=== PATIENT | male | born 1985 | race Caucasian/White ===

== ENCOUNTER 2018-11-15 16:14 | Inpatient (IN) | payer BC, MEDICAID, SELFPAY ==
[2018-11-15 16:25] VITALS: BMI 23.1
[2018-11-15 16:46] VITALS: BP 158/109; PULSE 108; RESP 18; TEMP 37.1; O2SAT 96
[2018-11-15] MEDS: chlordiazePOXIDE 25 MG Capsule PO ×2 (17:27→23:26)
[2018-11-15] MEDS: Dicyclomine 10 MG Capsule 20 MG PO (17:27)
--- NOTE | 2018-11-15 17:49 | HP.PCM_ITS ---
Problem List (1) Alcohol withdrawal Status: Acute Qualifiers: Complication of substance-induced condition: uncomplicated Qualified Code(s): F10.230 - Alcohol dependence with withdrawal, uncomplicated History of Present Illness Date of Admission: 11/15/18 Chief Complaint: Alcohol withdrawal The patient is a 33 year old M who was seen at [facility] with complaints of alcohol withdrawal, he was evaluated in the [facility] office and requested admission for alcohol withdrawal and detox. Patient's last drink was this morning-he states he had 2 ounces of vodka this morning. Patient admits to drinking 8 ounces of vodka on a daily basis. Patient denies other illicit drug usage. Past medical history includes hypertension. Patient has been through alcohol detox approximately 2 years ago, he states that he relapsed in September 2018 and is been drinking ever since. Today patient has complaints of tremors, anxiety, agitation, headache, and light sensitivity. Evaluation in the [facility] office area reveals the patient to be alert and appropriate, he does appear to be anxious and tremulous, on examination he is tachycardic. Patient appears restless. Patient will be directly admitted to [place] [id number] under the medical stabilization program at [facility]. Past Medical History Allergies Penicillins Adverse Reaction (Verified 11/15/18 16:36) Rash Home Medications: Ambulatory Orders Medication Instructions Recorded Losartan Potassium 100 mg PO DAILY 11/15/18 Surgical History: no surgical history Psychiatric History: No pertinent psych hx Lives: With Family Smoking Status: Never smoker Tobacco Use: Non-smoker Alcohol: Heavy Drugs: None - *Family History Maternal History Items: No pertinent history Paternal History Items: No pertinent history Review of Systems Constitutional: Reports: Malaise, Weakness. Denies: Anorexia, Chills, Fever, Night Sweats, Weight Change Eyes: Denies: Cataracts, Conjunctivae Inflammation, Double vision, Drainage HEENT: Denies: Difficulty Swallowing, Dysphasia, Ear Pain, Eye Pain, Hearing Changes, Nasal bleeding, Nasal Congestion, Post Nasal Drip Cardiovascular: Denies: Chest Pain, Claudication, Chest Pressure, Chest Tightness, Edema, Heaviness, Palpitations Respiratory: Denies: Cough, Hemoptysis, Pleuritic Pain, Shortness of Breath, Shortness of breath at rest, Shortness of breath upon exertion Gastrointestinal: Denies: Abdominal Pain, Constipation, Diarrhea, Hematemesis, Hematochezia, Nausea, Melena, Vomiting Genitourinary: Denies: Dysuria, Frequency, Hematuria, Hesitancy, Incontinence, Nocturia, Urgency Musculoskeletal: Denies: Back Pain, Foot Pain, Hand Pain, Joint Pain, Joint stiffness, Joint swelling, Joint Tenderness, Leg Pain Skin: Denies: Dryness, Pruritis, Rash Neurological: Reports: Headaches, Tremor. Denies: Balance problems, Blurred vision, Double vision, Slurred speech, Confusion, Difficulty swallowing, Focal weakness, Numbness, Tingling Psychiatric: Reports: Anxiety. Denies: Depression, Homicidal Ideations, Suicidal Ideations Endocrine: Denies: Change in Body Habitus, Heat/ Cold Intolerance, Polydipsia, Polyuria Hematologic/ Lymphatic: Denies: Adenopathy, Anemia, Easy Bruising, Easy Bleeding, Petechiae, Purpura VTE Information - Inpt Only VTE Present on Admission: No VTE Mechan Device Prophylaxis: None VTE Pharm Prophylaxis ordered?: No Reason prophylaxis not ordered:: Treatment Not Indicated Patient Problems: Active and Suspected Problems Alcohol withdrawal delirium, acute, hypoactive (Acute) Alcohol withdrawal (Acute) - Physical Exam General: Alert, Oriented x3, Cooperative, - - Patient appears moderately anxious, he does have a slight tremor, patient appears restless HEENT: Atraumatic, PERRLA, EOMI, Normocephalic Oral: Dry Mucosa Neck: Supple, No JVD, Negative Carotid Bruits, No Nuchal Rigidity, Trachea Midl ine, Thyroid Normal Size and Texture Lungs: Clear to auscultation, Normal air movement, No rhonchi, No wheeze, No rales Cardiovascular: Regular rate, Regular Rhythm, Normal S1, Normal S2, No murmurs, No Ectopic Activity Abdomen: Bowel Sounds Present, Soft, Non Tender, Non-Distended, No hernias noted Extremities: No clubbing, No cyanosis, No edema, Capillary Refill Less than 3 Seconds Skin: No rashes, No breakdown Musculoskeletal: No Tenderness to Palpation of Joints or Extremities Neurological: Cranial nerves II-XII grossly intact, Neuro grossly intact, Sensory exam intact to light touch and pain, Coordination normal Psych/Mental Status: Anxious, Restless, Alert and oriented to time, place, person, mood and affect Vital Signs Temp Pulse Resp BP Pulse Ox 98.7 F 108 H 18 158/109 H 96 11/15/18 16:46 11/15/18 16:46 11/15/18 16:46 11/15/18 16:46 11/15/18 16:46 Oxygen Delivery Method Room Air Weight: 79.379 kg Body Mass Index (BMI) 23.1 Assessment/Plan All Active Problems Alcohol withdrawal delirium, acute, hypoactive (Acute) Alcohol withdrawal (Acute) #1 acute alcohol withdrawal-uncomplicated at this time-patient will be admitted to [facility] 2, medical stabilization order sets were used to enter orders for the patient, patient requested a fluid bolus and I have written for 2000 cc of normal saline to be administered. Patient will be placed on a tapering dose of Librium and will be monitored and given IV Ativan as needed. #2 hypertension-I will place the patient on Diovan for hypertension, he takes losartan at home, I believe that the Diovan is a better medication in the same class #3 chronic alcoholism #4 possible depression-patient will need to follow-up as an outpatient regarding treatment for depression if needed. Patient does not espouse any suicidal thoughts. Code Visit Inpatient E&M: 24224 Init Hosp L3
[2018-11-15] MEDS: 0.9% Normal Saline 1,000 ML 999 ML IV ×2 (18:57→19:35)
[2018-11-15] MEDS: Losartan Potassium 50 MG Tablet PO (18:58)
[2018-11-15 19:03] VITALS: BP 145/90; PULSE 95; RESP 16; TEMP 36.9; O2SAT 100
[2018-11-15 21:02] VITALS: BP 112/62; PULSE 116; RESP 16; TEMP 37.1
[2018-11-15] MEDS: 0.9% NaCl Peripheral Flush Adult/Peds IV (21:06)
[2018-11-15] MEDS: Ondansetron 4 MG/2 ML Vial IV (21:06)
[2018-11-15 21:32] LABS: Anion Gap 13 (5-15); BUN 5 mg/dL (7-18); BUN/Creat Ratio 6.8 RATIO (10-20); Calcium,Total 7.5 mg/dL (8.5-10.1); Chloride 109 mmol/L (98-107); Creatinine, Serum 0.73 mg/dL (0.70-1.30); EST Glomerular Filtration Rate 133 mL/min (>60); Est Glom Filt Rate - Afr Amer 160 mL/min (>60); Estimated Creatinine Clearance 164.62 ml/min; Glucose 126 mg/dL (74-106); Potassium 3.3 mmol/L (3.5-5.1); Sodium Level 145 mmol/L (136-145)
[2018-11-15 23:24] VITALS: BP 106/66; PULSE 105; RESP 16; TEMP 36.7
[2018-11-16 03:30] VITALS: BP 121/79; PULSE 85; RESP 16; TEMP 36.6
[2018-11-16 05:34] VITALS: BP 140/97; PULSE 93; RESP 16; TEMP 37.1
[2018-11-16] MEDS: 0.9% NaCl Peripheral Flush Adult/Peds IV (05:38)
[2018-11-16] MEDS: Ondansetron 4 MG/2 ML Vial IV (05:38)
[2018-11-16] MEDS: chlordiazePOXIDE 25 MG Capsule PO ×3 (05:38→18:37)
[2018-11-16] MEDS: LORazepam 1 MG Tablet 2 MG PO ×2 (05:45→10:04)
--- NOTE | 2018-11-16 08:07 | PCM.PROGNOTE ---
Patient Problems: Active and Suspected Problems Alcohol withdrawal delirium, acute, hypoactive (Acute) Alcohol withdrawal (Acute) Subjective: Mr. Sandra is a 33 YO M who presented to the [facility] office at [facility] on 11/15/2018 requesting inpatient admission for medical stabilization for withdrawal from alcohol. He stated he drank 8 ounces of vodka on a daily basis. He denied any illicit drug use. Past medical history was significant only for alcohol dependence and hypertension. He had previously been to alcohol detox in 2016 and was sober until he relapsed in September 2018. Complained of tremors, anxiety, headache and light sensitivity. He was admitted to the [facility] program and the protocol for medical stabilization for ETOH withdrawal was initiated. He was placed on an Ativan taper. Lab at admission showed a K of 3.3. GLucose was mildly increased at 126. All events of the past 24 hours have been reviewed. He has been afebrile. He was initially tachycardic but the heart rate this a.m. is 93. Blood pressure today is mildly increased at 140/97. He is c/o anxiety and states that the Ativan is not enough to control his anxiety. 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 He tells me that the holidays is a hard time for him and he gets depressed. He is agreeable to an antidepressant. Objective: PHYSICAL EXAM: GENERAL: alert, oriented X 3, Cooperative, he is shaky and lying in a dark room, he has tremors and looks anxious ORAL: moist mucosa, no mucosal lesions NECK: No JVD, supple, trachea midline LUNGS: CTA, symmetric chest expansion HEART: RRR, Normal S1 and S2, no rub, no gallop....increased resting HR ABDOMEN: soft, NT, ND, BS present, no guarding with palpation EXTREMITIES: no edema, no cyanosis, no calf tenderness SKIN: No rashes, no breakdown NEUROLOGIC: no focal neurologic deficits, tremors PSYCH: appropriate, normal affect, pleasant - Physical Exam Vital Signs Temp Pulse Resp BP Pulse Ox 98.8 F 93 16 140/97 H 100 11/16/18 05:34 11/16/18 05:34 11/16/18 05:34 11/16/18 05:34 11/15/18 19:03 Oxygen Delivery Method Room Air Weight: 175 lb Body Mass Index (BMI) 23.1 Intake and Output for Last 24 Hours 11/14/18 11/15/18 11/16/18 23:59 23:59 23:59 Intake Total 3305 / 3305 400 / 400 Balance 3305 / 3305 400 / 400 Laboratory Tests Past 24 Hrs 11/15/18 21:12 Sodium 145 Potassium 3.3 L Chloride 109 H Carbon Dioxide 23.0 Anion Gap 13 BUN 5 L Creatinine 0.73 Estim Creat Clear Calc 164.62 Est GFR (MDRD) Af Amer 160 Est GFR (MDRD) Non-Af 133 BUN/Creatinine Ratio 6.8 L Glucose 126 H Calcium 7.5 L Medical Necessity - Tobacco Use Smoking Status: Never smoker Tobacco Use: Non-smoker Assessment/Plan All Active Problems Alcohol withdrawal delirium, acute, hypoactive (Acute) Alcohol withdrawal (Acute) Impression 1. acute ETOH withdrawal 2. anxiety/depression - the anxiety is worse today but he has chronic anxiety....will DC the Wellbutrin and use an SSRI to control both anxiety and depression 3. Hypokalemia - supplement ordered Try Vistaril for the increased anxiety Continue the [facility] program for ETOH withdrawal Code Visit Inpatient E&M: 14736 Subs Hosp L2
--- NOTE | 2018-11-16 08:12 | PN_ITS ---
Patient Problems: Active and Suspected Problems Alcohol withdrawal delirium, acute, hypoactive (Acute) Alcohol withdrawal (Acute) Subjective: Mr. Sandra is a 33 YO M who presented to the [facility] office at [facility] on 11/15/2018 requesting inpatient admission for medical stabilization for withdrawal from alcohol. He stated he drank 8 ounces of vodka on a daily basis. He denied any illicit drug use. Past medical history was significant only for alcohol dependence and hypertension. He had previously been to alcohol detox in 2016 and was sober until he relapsed in September 2018. Complained of tremors, anxiety, headache and light sensitivity. He was admitted to the [facility] program and the protocol for medical stabilization for ETOH withdrawal was initiated. He was placed on an Ativan taper. Lab at admission showed a K of 3.3. GLucose was mildly increased at 126. All events of the past 24 hours have been reviewed. He has been afebrile. He was initially tachycardic but the heart rate this a.m. is 93. Blood pressure today is mildly increased at 140/97. He is c/o anxiety and states that the Ativan is not enough to control his anxiety. 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 He tells me that the holidays is a hard time for him and he gets depressed. He is agreeable to an antidepressant. Objective: PHYSICAL EXAM: GENERAL: alert, oriented X 3, Cooperative, he is shaky and lying in a dark room, he has tremors and looks anxious ORAL: moist mucosa, no mucosal lesions NECK: No JVD, supple, trachea midline LUNGS: CTA, symmetric chest expansion HEART: RRR, Normal S1 and S2, no rub, no gallop....increased resting HR ABDOMEN: soft, NT, ND, BS present, no guarding with palpation EXTREMITIES: no edema, no cyanosis, no calf tenderness SKIN: No rashes, no breakdown NEUROLOGIC: no focal neurologic deficits, tremors PSYCH: appropriate, normal affect, pleasant - Physical Exam Vital Signs Temp Pulse Resp BP Pulse Ox 98.8 F 93 16 140/97 H 100 11/16/18 05:34 11/16/18 05:34 11/16/18 05:34 11/16/18 05:34 11/15/18 19:03 Oxygen Delivery Method Room Air Weight: 175 lb Body Mass Index (BMI) 23.1 Intake and Output for Last 24 Hours 11/14/18 11/15/18 11/16/18 23:59 23:59 23:59 Intake Total 3305 / 3305 400 / 400 Balance 3305 / 3305 400 / 400 Laboratory Tests Past 24 Hrs 11/15/18 21:12 Sodium 145 Potassium 3.3 L Chloride 109 H Carbon Dioxide 23.0 Anion Gap 13 BUN 5 L Creatinine 0.73 Estim Creat Clear Calc 164.62 Est GFR (MDRD) Af Amer 160 Est GFR (MDRD) Non-Af 133 BUN/Creatinine Ratio 6.8 L Glucose 126 H Calcium 7.5 L Medical Necessity - Tobacco Use Smoking Status: Never smoker Tobacco Use: Non-smoker Assessment/Plan All Active Problems Alcohol withdrawal delirium, acute, hypoactive (Acute) Alcohol withdrawal (Acute) Impression 1. acute ETOH withdrawal 2. anxiety/depression - the anxiety is worse today but he has chronic anxiety....will DC the Wellbutrin and use an SSRI to control both anxiety and depression 3. Hypokalemia - supplement ordered Try Vistaril for the increased anxiety Continue the [facility] program for ETOH withdrawal Code Visit Inpatient E&M: 54524 Subs Hosp L2
[2018-11-16 10:00] VITALS: BP 143/97; PULSE 91; RESP 16; TEMP 37.1
[2018-11-16] MEDS: Methocarbamol 750 MG Tablet PO (10:04)
[2018-11-16] MEDS: Dicyclomine 10 MG Capsule 20 MG PO (10:04)
[2018-11-16] MEDS: Acetaminophen 500 MG Tablet PO (10:04)
[2018-11-16] MEDS: Multivitamins,Therapeutic Tablet 1 TABLET PO (10:05)
[2018-11-16] MEDS: buPROPion (XL) 150 MG TABLET.XL PO (10:05)
[2018-11-16] MEDS: Folic Acid 1 MG Tablet PO (10:05)
[2018-11-16] MEDS: Thiamine Hydrochloride 100 MG Tablet PO (10:06)
[2018-11-16] MEDS: Losartan Potassium 50 MG Tablet PO (10:06)
[2018-11-16 14:30] VITALS: BP 142/95; PULSE 91; RESP 18; TEMP 37.4
[2018-11-16] MEDS: hydrOXYzine PAM 25 MG Capsule PO ×2 (14:44→22:21)
[2018-11-16 18:45] VITALS: BP 138/90; PULSE 103; RESP 16; TEMP 37
[2018-11-16 22:16] VITALS: BP 139/99; PULSE 95; RESP 16; TEMP 36.8
[2018-11-17] VITALS (7 sets, daily range): BP systolic 141–147; BP diastolic 92–99; PULSE 86–95; RESP 16–18; TEMP 36.6–37.2; O2SAT 99
[2018-11-17] MEDS: chlordiazePOXIDE 25 MG Capsule PO ×3 (02:17→18:40)
[2018-11-17] MEDS: hydrOXYzine PAM 25 MG Capsule PO ×2 (06:20→20:23)
[2018-11-17] MEDS: Thiamine Hydrochloride 100 MG Tablet PO (09:22)
[2018-11-17] MEDS: Folic Acid 1 MG Tablet PO (09:22)
[2018-11-17] MEDS: Multivitamins,Therapeutic Tablet 1 TABLET PO (09:22)
[2018-11-17] MEDS: Losartan Potassium 50 MG Tablet PO (09:22)
[2018-11-17] MEDS: Sertraline 50 MG Tablet PO (09:25)
--- NOTE | 2018-11-17 10:19 | PCM.PN.HOSP ---
Patient Problems: Active and Suspected Problems Alcohol withdrawal delirium, acute, hypoactive (Acute) Alcohol withdrawal (Acute) Subjective: Feeling better. Tremors better. Headache better. Vitals/I&O's: Vital Signs Temp Pulse Resp BP Pulse Ox 36.8 C 95 18 144/95 H 99 11/17/18 09:10 11/17/18 09:10 11/17/18 09:15 11/17/18 09:10 11/17/18 09:10 Oxygen Delivery Method Room Air Weight: 79.379 kg Body Mass Index (BMI) 23.1 Intake and Output for Last 24 Hours 11/15/18 11/16/18 11/17/18 23:59 23:59 23:59 Intake Total 3305 / 3305 1000 / 1000 100 / 100 Balance 3305 / 3305 1000 / 1000 100 / 100 General: Alert, Cooperative, No apparent distress HEENT: Atraumatic, Normocephalic Oral: Moist Mucosa, No Gingival or Mucosal Lesions/ Ulcerations Neck: No Nodes, Thyroid Normal Size and Texture Lungs: Clear to auscultation, Normal air movement, No rhonchi, No wheeze Cardiovascular: Regular rate, Regular Rhythm, Normal S1, Normal S2 Abdomen: Bowel Sounds Present, Soft, Non Tender, Non-Distended Extremities: No edema, No Calf Tenderness Current Medications Acetaminophen (Tylenol) 500 mg PO Q4H PRN PRN PRN Reason: Temp > 100.4 F Last Admin: 11/16/18 10:04 Dose: 500 mg Chlordiazepoxide (Librium) 50 mg PO Q8H MELODIE; Taper Stop: 11/18/18 18:59 Last Admin: 11/17/18 02:17 Dose: 50 mg Dicyclomine HCl (Bentyl) 20 mg PO Q6H PRN PRN PRN Reason: abdominal discomfort Last Admin: 11/16/18 10:04 Dose: 20 mg Folic Acid (Folic Acid) 1 mg PO DAILYCM MELODIE Last Admin: 11/17/18 09:22 Dose: 1 mg Hydroxyzine Pamoate (Vistaril Pamoate Capsule) 25 mg PO TID PRN PRN PRN Reason: ANXIETY Last Admin: 11/17/18 06:20 Dose: 25 mg Ibuprofen (Motrin) 600 mg PO Q8H PRN PRN PRN Reason: Mild-Moderate Pain (1-5/10) Lorazepam (Ativan) 2 mg PO Q2H PRN PRN; Protocol PRN Reason: CIWA score > 8 but <15 Last Admin: 11/16/18 10:04 Dose: 2 mg Lorazepam (Ativan) 2 mg PO UD PRN; Protocol PRN Reason: CIWA score >/=15. Lorazepam (Ativan) 2 mg IV Q2H PRN PRN; Protocol PRN Reason: CIWA score > 8 but <15 Lorazepam (Ativan) 2 mg IV UD PRN; Protocol PRN Reason: CIWA score >/=15. Losartan Potassium (Cozaar) 50 mg PO DAILY [facility] Last Admin: 11/17/18 09:22 Dose: 50 mg Methocarbamol (Methocarbamol) 750 mg PO Q6H PRN PRN PRN Reason: Muscle Aches Last Admin: 11/16/18 10:04 Dose: 750 mg [facility]it[facility]amin) [facility] Last Admin: 11/17/18 09:22 Dose: 1 tablet Nutritional Formula (Lactose Free) (Ensure Clear) 120 ml PO 4X/DAY [facility] Last Admin: 11/17/18 09:25 Dose: 120 ml Ondansetron HCl (Zofran) 4 mg IV Q6H PRN PRN PRN Reason: NAUSEA Last Admin: 11/16/18 05:38 Dose: 4 mg Potassium Chloride (K-Dur) [facility] Stop: 11/17/18 17:01 Last Admin: 11/17/18 09:22 Dose: 20 meq Sertraline HCl (Zoloft) 50 mg PO DAILY [facility] Last Admin: 11/17/18 09:25 Dose: 50 mg Sodium Chloride () 5 - 15 ml IV UD PRN PRN Reason: SALINE FLUSH Last Admin: 11/16/18 05:38 Dose: 10 ml Thiamine HCl (Vitamin B1) [facility] Last Admin: 11/17/18 09:22 Dose: 100 mg Medical Necessity - Tobacco Use Smoking Status: Never smoker Tobacco Use: Non-smoker Assessment/Plan All Active Problems Alcohol withdrawal delirium, acute, hypoactive (Acute) Alcohol withdrawal (Acute) 1. Acute alcohol withdrawal improving, but still ongoing. continue Librium taper. Anticipate, if he is feeling better, that he could be discharged on 11/18 [facility] to facilitate outpatient treatment Folate and thiamin. Code Visit Inpatient E&M: 20418 Subs Hosp L2
--- NOTE | 2018-11-17 10:22 | PN_ITS ---
Patient Problems: Active and Suspected Problems Alcohol withdrawal delirium, acute, hypoactive (Acute) Alcohol withdrawal (Acute) Subjective: Feeling better. Tremors better. Headache better. Vitals/I&O's: Vital Signs Temp Pulse Resp BP Pulse Ox 36.8 C 95 18 144/95 H 99 11/17/18 09:10 11/17/18 09:10 11/17/18 09:15 11/17/18 09:10 11/17/18 09:10 Oxygen Delivery Method Room Air Weight: 79.379 kg Body Mass Index (BMI) 23.1 Intake and Output for Last 24 Hours 11/15/18 11/16/18 11/17/18 23:59 23:59 23:59 Intake Total 3305 / 3305 1000 / 1000 100 / 100 Balance 3305 / 3305 1000 / 1000 100 / 100 General: Alert, Cooperative, No apparent distress HEENT: Atraumatic, Normocephalic Oral: Moist Mucosa, No Gingival or Mucosal Lesions/ Ulcerations Neck: No Nodes, Thyroid Normal Size and Texture Lungs: Clear to auscultation, Normal air movement, No rhonchi, No wheeze Cardiovascular: Regular rate, Regular Rhythm, Normal S1, Normal S2 Abdomen: Bowel Sounds Present, Soft, Non Tender, Non-Distended Extremities: No edema, No Calf Tenderness Current Medications Acetaminophen (Tylenol) 500 mg PO Q4H PRN PRN PRN Reason: Temp > 100.4 F Last Admin: 11/16/18 10:04 Dose: 500 mg Chlordiazepoxide (Librium) 50 mg PO Q8H MELODIE; Taper Stop: 11/18/18 18:59 Last Admin: 11/17/18 02:17 Dose: 50 mg Dicyclomine HCl (Bentyl) 20 mg PO Q6H PRN PRN PRN Reason: abdominal discomfort Last Admin: 11/16/18 10:04 Dose: 20 mg Folic Acid (Folic Acid) 1 mg PO DAILYCM MELODIE Last Admin: 11/17/18 09:22 Dose: 1 mg Hydroxyzine Pamoate (Vistaril Pamoate Capsule) 25 mg PO TID PRN PRN PRN Reason: ANXIETY Last Admin: 11/17/18 06:20 Dose: 25 mg Ibuprofen (Motrin) 600 mg PO Q8H PRN PRN PRN Reason: Mild-Moderate Pain (1-5/10) Lorazepam (Ativan) 2 mg PO Q2H PRN PRN; Protocol PRN Reason: CIWA score > 8 but <15 Last Admin: 11/16/18 10:04 Dose: 2 mg Lorazepam (Ativan) 2 mg PO UD PRN; Protocol PRN Reason: CIWA score >/=15. Lorazepam (Ativan) 2 mg IV Q2H PRN PRN; Protocol PRN Reason: CIWA score > 8 but <15 Lorazepam (Ativan) 2 mg IV UD PRN; Protocol PRN Reason: CIWA score >/=15. Losartan Potassium (Cozaar) 50 mg PO DAILY [facility] Last Admin: 11/17/18 09:22 Dose: 50 mg Methocarbamol (Methocarbamol) 750 mg PO Q6H PRN PRN PRN Reason: Muscle Aches Last Admin: 11/16/18 10:04 Dose: 750 mg [facility]ivit[facility] ([facility]ivitamin) [facility] Last Admin: 11/17/18 09:22 Dose: 1 tablet Nutritional Formula (Lactose Free) (Ensure Clear) 120 ml PO 4X/DAY [facility] Last Admin: 11/17/18 09:25 Dose: 120 ml Ondansetron HCl (Zofran) 4 mg IV Q6H PRN PRN PRN Reason: NAUSEA Last Admin: 11/16/18 05:38 Dose: 4 mg Potassium Chloride (K-Dur) [facility] Stop: 11/17/18 17:01 Last Admin: 11/17/18 09:22 Dose: 20 meq Sertraline HCl (Zoloft) 50 mg PO DAILY [facility] Last Admin: 11/17/18 09:25 Dose: 50 mg Sodium Chloride () 5 - 15 ml IV UD PRN PRN Reason: SALINE FLUSH Last Admin: 11/16/18 05:38 Dose: 10 ml Thiamine HCl (Vitamin B1) [facility] Last Admin: 11/17/18 09:22 Dose: 100 mg Medical Necessity - Tobacco Use Smoking Status: Never smoker Tobacco Use: Non-smoker Assessment/Plan All Active Problems Alcohol withdrawal delirium, acute, hypoactive (Acute) Alcohol withdrawal (Acute) 1. Acute alcohol withdrawal * improving, but still ongoing. * continue Librium taper. * Anticipate, if he is feeling better, that he could be discharged on 12/23 * [facility] to facilitate outpatient treatment * Folate and thiamin. Code Visit Inpatient E&M: 33539 Subs Hosp L2
[2018-11-17] MEDS: Ondansetron 4 MG/2 ML Vial IV (17:12)
[2018-11-17] MEDS: 0.9% NaCl Peripheral Flush Adult/Peds IV (17:12)
[2018-11-17] MEDS: Dicyclomine 10 MG Capsule 20 MG PO (18:44)
[2018-11-18 06:00] VITALS: BP 133/88; PULSE 86; RESP 16; TEMP 36.6; O2SAT 100
[2018-11-18] MEDS: chlordiazePOXIDE 25 MG Capsule PO (06:01)
--- NOTE | 2018-11-18 08:49 | PCM.DC ---
- Discharge Diagnoses Current Active Problems: Current Active and Chronic Problems Alcohol withdrawal delirium, acute, hypoactive (Acute) Alcohol withdrawal (Acute) You will use the following diet at home:: No restrictions Your food should be the consistency of: Regular Your liquids should be the consistency of: Regular/Thin Discharge Activity: Return to Normal Activity Allergies/Adverse Reactions: Allergies Penicillins Adverse Reaction (Verified 11/15/18 16:36) Rash Medications to take at Discharge Losartan Potassium 100 mg PO DAILY 11/15/18 Acetaminophen [Tylenol] 500 mg PO Q4H PRN PRN tablet 11/18/18 Ibuprofen [Motrin] 600 mg PO Q8H PRN PRN tablet 11/18/18 Multivitamins,Therapeutic [Multivitamin] 1 tablet PO DAILYCM tablet 11/18/18 Primary Care Physician: Care Physician,No Primary [Primary Care Provider] - Test Results: Test results from this visit will be discussed in further detail at your follow-up appointment, if applicable. Please Follow Up With: [facility] When: 12.25.2018 at 2pm Proposed Discharge Date: 11/18/18
[2018-11-18 08:52] VITALS: BP 134/87; PULSE 91; RESP 18; TEMP 37.1; O2SAT 99
--- NOTE | 2018-11-18 08:52 | DCINST_ITS ---
- Discharge Diagnoses Current Active Problems: Current Active and Chronic Problems Alcohol withdrawal delirium, acute, hypoactive (Acute) Alcohol withdrawal (Acute) You will use the following diet at home:: No restrictions Your food should be the consistency of: Regular Your liquids should be the consistency of: Regular/Thin Discharge Activity: Return to Normal Activity Allergies/Adverse Reactions: Allergies Penicillins Adverse Reaction (Verified 11/15/18 16:36) Rash Medications to take at Discharge Losartan Potassium 100 mg PO DAILY 11/15/18 Acetaminophen [Tylenol] 500 mg PO Q4H PRN PRN tablet 11/18/18 Ibuprofen [Motrin] 600 mg PO Q8H PRN PRN tablet 11/18/18 Multivitamins,Therapeutic [Multivitamin] 1 tablet PO DAILYCM tablet 11/18/18 Primary Care Physician: Care Physician,No Primary [Primary Care Provider] - Test Results: Test results from this visit will be discussed in further detail at your follow- up appointment, if applicable. Please Follow Up With: [facility] When: 12.25.2018 at 2pm Proposed Discharge Date: 11/18/18
--- NOTE | 2018-11-18 08:55 | DS.PCM_ITS ---
Discharge Date and Diagnosis - Problem List Patient Problems: Active and Suspected Problems Alcohol withdrawal (Acute) Date of Admission: 11/15/18 Date of Discharge: 11/18/18 - Primary Discharge Diagnosis Active and Suspected Problems Alcohol withdrawal delirium, acute, hypoactive (Acute) Alcohol withdrawal (Acute) Hospital Course and Treatment Operations: None Procedures: None Summary of Care Provided: The patient is a 33 year old M presents on the for symptoms of alcohol withdrawal. Patient was drinking 8 ounces of vodka on daily basis. Patient was complaining of tremors, anxiety, agitation, headache and photosensitivity. Patient was admitted and started on Librium through the [facility] medical stabilization protocol patient also had additional agents to help him with somatic complaints. Patient's course was uncomplicated and progressed well. Patient's last dose of Librium is due for Christen simpson, however, I do not feel that is necessary as patient has demonstrated improvement and is not necessary for him to stay for that additional medication. I feel the patient could be discharged now in stable condition. Patient will follow up with [facility] on the at 2 PM. Patient advised to seek out other support networks will be through family and friends and possibly even AA to help him through his long-term treatment. [] Patient Problems: Active and Suspected Problems Alcohol withdrawal (Acute) - Physical Exam General: Alert, No apparent distress HEENT: Atraumatic, Normocephalic Psych/Mental Status: Normal Affect, Appropriate Vital Signs Temp Pulse Resp BP Pulse Ox 36.6 C 86 16 133/88 H 100 11/18/18 06:00 11/18/18 06:00 11/18/18 06:00 11/18/18 06:00 11/18/18 06:00 Oxygen Delivery Method Room Air Weight: 79.379 kg Body Mass Index (BMI) 23.1 Intake and Output for Last 24 Hours 11/16/18 11/17/18 11/18/18 23:59 23:59 23:59 Intake Total 1000 / 1000 1100 / 1100 300 / 300 Balance 1000 / 1000 1100 / 1100 300 / 300 Discharge Diet: No Restrictions Discharge Activity: Return to Normal Activity Home Medications: Medications to take at Discharge Losartan Potassium 100 mg PO DAILY 11/15/18 Acetaminophen [Tylenol] 500 mg PO Q4H PRN PRN tablet 11/18/18 Ibuprofen [Motrin] 600 mg PO Q8H PRN PRN tablet 11/18/18 Multivitamins,Therapeutic [Multivitamin] 1 tablet PO DAILYCM tablet 11/18/18 Primary Care Physician: Care Physician,No Primary [Primary Care Provider] - Please Follow Up With: [facility] When: 12.25.2018 at 2pm Disposition: Home Minutes spent on discharge:: 28 Patient Condition:: Good Medical Necessity - Tobacco Use Smoking Status: Never smoker Tobacco Use: Non-smoker Meaningful Use Info Meaningful Use Diagnoses (Choose all that apply): None applicable Code Visit Inpatient E&M: 15848 Disch Hosp
[2018-11-18 09:01] VITALS: RESP 18
[2018-11-18] MEDS: Thiamine Hydrochloride 100 MG Tablet PO (09:06)
[2018-11-18] MEDS: Losartan Potassium 50 MG Tablet PO (09:06)
[2018-11-18] MEDS: Sertraline 50 MG Tablet PO (09:07)
[2018-11-18] MEDS: Multivitamins,Therapeutic Tablet 1 TABLET PO (09:07)
[2018-11-18] MEDS: Folic Acid 1 MG Tablet PO (09:07)
== END 2018-11-18 09:48 | disposition home or self-care (01) | DRG 897 ==
PROVIDERS: Admitting Provider Internal Medicine; Referring Provider Internal Medicine
DX: F10.239 Alcohol dependence with withdrawal, unspecified (principal); I10 Essential (primary) hypertension; F41.9 Anxiety disorder, unspecified
CPT/HCPCS: 36415; 80048; 97802; J7030; A4216; J2405